=== PATIENT | male | born 1985 | race Caucasian/White ===

== ENCOUNTER → 2024-03-22 08:03 | Outpatient (CLI) | payer OTHER, SELFPAY ==
--- NOTE | 2024-03-22 | DI.MRI.S_ITS ---
PROCEDURE: MR SHOULDER RT W CON INDICATIONS: PAIN IN RIGHT SHOULDER TECHNIQUE: After the administration of 12 mL of dilute intra-articular Gadolinium contrast, oblique coronal T1 and T2 spin echo with fat saturation, oblique sagittal T1 spin echo with and without fat saturation, oblique sagittal T2 fast spin echo with fat saturation, axial T1 spin echo with fat saturation through the shoulder. COMPARISON: [facility], , [place] SHOULDER INJECTION MR/CT RT, 03/22/2024, 7:30. FINDINGS: Image quality: Excellent. Rotator cuff: In the supraspinatus, there is low-grade, articular sided tear at the critical zone of the anterior and mid fiber. The infraspinatus is unremarkable. The teres minor is unremarkable. The subscapularis is unremarkable. No muscle edema or fatty atrophy. Bones and bursae: Mild degenerative changes of the acromioclavicular joint . Type 1 acromion. No os acromiale. Mild subacromial/subdeltoid bursitis. Small amount of contrast extravasation into the subacromial/subdeltoid bursa. No acute fracture. No focal chondral defect of the glenohumeral joint. Capsule and soft tissues: Tear of the posterior labrum and the inferior labrum. No paralabral cyst. The extra-articular biceps tendon is intact. Moderate tendinosis of the intra-articular biceps tendon. Large amount of contrast distends the glenohumeral joint and the subcoracoid bursa. IMPRESSION: 1. Mild degenerative changes of the acromioclavicular joint. 2. Low-grade tear of the supraspinatus. 3. Contrast extravasation into the subacromial/subdeltoid bursa, without full-thickness tear of the rotator cuff tendon, of unclear etiology. 4. Posterior and inferior labral tear. 5. Moderate tendinosis of the intra-articular biceps tendon. Dictated by: Helga Smart M.D. on 03/22/2024 at 22:38 Approved by: Helga Smart M.D. on 03/22/2024 at 22:48
--- NOTE | 2024-03-22 | DI.RAD.S_ITS ---
PROCEDURE: [place] SHOULDER INJECTION MR/CT RT INDICATIONS: PAIN IN RIGHT SHOULDER COMPARISON: None. TECHNIQUE: The indications, alternatives, benefits, risks, and complications of the procedure were explained to the patient. Written informed consent was obtained and placed in the chart. The shoulder was examined fluoroscopically and a site for needle placement chosen for entry into the glenohumeral joint from an anterior approach. The skin was prepped and draped in a sterile fashion, and 1% lidocaine infiltrated from skin down to joint capsule. A spinal needle was inserted into the glenohumeral joint, and a small amount of iodinated contrast media injected to confirm intra-articular placement of the needle tip. This was followed by approximately 12 mL dilute solution of a gadolinium containing MR contrast agent. The needle was removed and a dressing was applied. The patient was given postprocedural instructions and sent to the MR suite for MR imaging. FINDINGS: A single fluoroscopic spot image demonstrates intra-articular location of injected iodinated contrast. IMPRESSION: Successful fluoroscopically guided administration of dilute Gadolinium solution into the shoulder joint for MR arthrogram. Dictated by: Chevy Daily M.D. on 03/22/2024 at 9:50 Approved by: Chevy Daily M.D. on 03/22/2024 at 9:51
[2024-03-22] MEDS: LIDOCAINE 1% 20 ML INJ (09:08)
[2024-03-22] MEDS: SODIUM CHLORIDE 0.9 % 20 ML VIAL IV (09:09)
== END ==
LOC: RAD 08:04
PROVIDERS: Referring Provider Internal Medicine; Visit Provider Internal Medicine
DX: M75.111 Incomplete rotator cuff tear or rupture of right shoulder, not specified as traumatic (principal); S43.491A Other sprain of right shoulder joint, initial encounter; M25.511 Pain in right shoulder
CPT/HCPCS: 23350; 73040; 73222; A9579; Q9967